=== PATIENT | female | born 2000 | race African-American/Black ===

== ENCOUNTER 2023-09-18 12:42 | Emergency (ER) | payer OTHER ==
[~2023-09-18] VITALS: Ht 170.2 cm; Wt 160.0 kg
[2023-09-18 12:46] VITALS: O2SAT 98
[2023-09-18] MEDS ORDERED: MORPHINE SULFATE 2 MG/ML CPJ (NOT FOR IM USE) IV ONE (13:00)
[2023-09-18 13:51] LABS: CLARITY URINE TURBID (CLEAR); COLOR URINE ORANGE (YELLOW); GLUCOSE URINE TRACE (NEGATIVE); KETONES URINE NEGATIVE (NEGATIVE); LEUKOCYTE ESTERASE URINE 3+ (NEGATIVE); NITRITE URINE NEGATIVE (NEGATIVE); OCCULT BLOOD URINE 1+ (NEGATIVE); PH URINE >=9.0 (4.5-8.0); PROTEIN URINE 3+ (NEGATIVE); SPECIFIC GRAVITY URINE 1.021 (1.005-1.030); UROBILINOGEN URINE 0.2 E.U./dL (0.2-1.0)
[2023-09-18 14:08] LABS: BACTERIA URINE 3+; SQUAMOUS EPITHELIAL CELL URINE RARE /lpf (RARE/1+); YEAST URINE NONE SEEN
[2023-09-18 14:09] LABS: TRIPLE PHOSPHATE CRYSTAL URINE 3+ /lpf
[2023-09-18] MEDS: SODIUM CHLORIDE 0.9% 1,000 ML IV ONE (14:57)
[2023-09-18 15:00] LABS: BASOPHILS % 0.5 % (0.0-2.0); EOSINOPHILS % 2.1 % (0.0-5.0); HEMATOCRIT. 35.9 % (36.0-48.0); HEMOGLOBIN. 11.5 g/dL (12.0-16.0); LYMPHOCYTES % 31.9 % (20.0-50.0); MEAN CORPUSCULAR HEMOGLOBIN 28.1 pg (28.0-32.0); MEAN CORPUSCULAR HGB CONC 31.9 g/dL (31.0-37.0); MEAN CORPUSCULAR VOLUME 88.1 fL (81.0-99.0); MEAN PLATELET VOLUME 8.8 fl (7.4-10.4); MONOCYTES % 4.5 % (2.0-8.0); PLATELET 329 x1000/uL (130-400); RED BLOOD CELL COUNT 4.08 mill/uL (4.2-5.4); WHITE BLOOD COUNT 6.1 x1000/uL (4.5-11.0)
[2023-09-18] MEDS: CEFTRIAXONE 1GM/50ML 50 ML IV NR (15:05)
[2023-09-18 15:17] LABS: ALANINE AMINOTRANSFERASE < 7 IU/L (10-49); ASPARTATE AMINOTRANSFERASE 11 IU/L (<34); BILIRUBIN TOTAL 0.4 mg/dL (0.1-1.0); CALCIUM 8.8 mg/dL (8.7-10.4); CARBON DIOXIDE 22 mEq/L (21-32); CHLORIDE 110 mEq/L (98-107); CREATININE 0.7 mg/dL (0.6-1.0); GLUCOSE 87 mg/dL (70-105); POTASSIUM 5.1 mEq/L (3.5-5.1); PROTEIN TOTAL 7.8 g/dL (6.0-8.3); SODIUM 137 mEq/L (136-145); UREA NITROGEN BLOOD 12 mg/dL (9-23)
[2023-09-18] MEDS: MORPHINE SULFATE 2 MG/ML CPJ (NOT FOR IM USE) IV NR (15:35)
[2023-09-18 17:11] VITALS: BP 123/72; PULSE 101; RESP 17; TEMP 98.2
== END 2023-09-18 17:37 | disposition short-term general hospital (02) ==
LOC: ER 12:42 → CANBEDREQ 16:12 → ER 17:37
DX: N39.0 Urinary tract infection, site not specified (principal)
CPT/HCPCS: 80053; 81003; 83690; 85025; 87086; 87186; 87077; 36415; 93005; 96365; 96375; 99285; J0696; J2270; J7030; Z7610 ×3; C1893

== ENCOUNTER 2023-10-26 11:04 | Emergency (ER) | payer OTHER ==
[~2023-10-26] VITALS: Ht 170.2 cm; Wt 145.0 kg
[2023-10-26 11:07] VITALS: O2SAT 99
[2023-10-26 12:18] LABS: BASOPHILS % 0.9 % (0.0-2.0); HEMATOCRIT. 33.8 % (36.0-48.0); LYMPHOCYTES % 28.8 % (20.0-50.0); MEAN CORPUSCULAR HEMOGLOBIN 27.4 pg (28.0-32.0); MEAN CORPUSCULAR HGB CONC 32.5 g/dL (31.0-37.0); MEAN CORPUSCULAR VOLUME 84.4 fL (81.0-99.0); MEAN PLATELET VOLUME 8.8 fl (7.4-10.4); MONOCYTES % 3.6 % (2.0-8.0); NEUTROPHILS % 64.7 % (40.0-76.0); PLATELET 286 x1000/uL (130-400); RED CELL DISTRIBUTION WIDTH 14.9 % (11.6-14.6); WHITE BLOOD COUNT 5.9 x1000/uL (4.5-11.0)
[2023-10-26 12:37] LABS: ALANINE AMINOTRANSFERASE < 7 IU/L (10-49); ALBUMIN 3.9 g/dL (3.2-4.8); ASPARTATE AMINOTRANSFERASE 10 IU/L (<34); BILIRUBIN TOTAL 0.2 mg/dL (0.1-1.0); CALCIUM 8.5 mg/dL (8.7-10.4); CARBON DIOXIDE 25 mEq/L (21-32); CHLORIDE 109 mEq/L (98-107); CREATININE 0.8 mg/dL (0.6-1.0); GLUCOSE 104 mg/dL (70-105); POTASSIUM 4.2 mEq/L (3.5-5.1); PROTEIN TOTAL 7.5 g/dL (6.0-8.3); SODIUM 137 mEq/L (136-145); UREA NITROGEN BLOOD 14 mg/dL (9-23)
[2023-10-26 12:40] LABS: TROPONIN I HIGH SENSITIVITY < 4 ng/L (3.0-34)
[2023-10-26 12:57] LABS: PROTHROMBIN TIME 10.7 sec (9.6-11.0)
[2023-10-26] MEDS: CEFTRIAXONE 1GM/50ML 50 ML IV ONE (14:09)
[2023-10-26] MEDS ORDERED: DOCUSATE SODIUM 100MG CAPSULE PO PRN (15:00)
[2023-10-26] MEDS ORDERED: GUAIFENESIN 200MG/10ML SUGAR FREE UDC PO PRN (15:00)
[2023-10-26] MEDS ORDERED: CLONIDINE 0.1MG TABLET PO PRN (15:00)
[2023-10-26] MEDS ORDERED: ONDANSETRON HCL 4MG/2ML INJ IV PRN (15:00)
[2023-10-26] MEDS ORDERED: IPRATROPIUM/ALBUTEROL 0.5-3(2.5)MG/3ML NEB NEB PRN (15:00)
[2023-10-26] MEDS ORDERED: NITROGLYCERIN 0.4MG TABLET SL SL PRN (15:00)
[2023-10-26] MEDS ORDERED: ACETAMINOPHEN 325MG TABLET PO PRN ×2 (15:00)
[2023-10-26] MEDS ORDERED: MAGNESIUM/ALUMINUM HYDROXIDE/SIMETHICONE 30ML UDC PO PRN (15:00)
[2023-10-26] MEDS ORDERED: KETOROLAC 15MG/ML VIAL IV PRN (15:00)
[2023-10-26 15:41] LABS: FOLIC ACID (FOLATE) SERUM 6.42 ng/mL (>5.38); IRON 17 ug/dL (50-170); T4 FREE 1.08 ng/dL (0.89-1.76); THYROID STIMULATING HORMONE 0.86 uIU/mL (0.55-4.78); TOTAL IRON BINDING CAPACITY 630 ug/dl (250-425); VITAMIN B12 SERUM 289 pg/mL (211-911)
[2023-10-26 16:30] VITALS: BP 159/89; PULSE 89; RESP 18; TEMP 97.9
[2023-10-26] MEDS ORDERED: ENOXAPARIN 40MG/0.4ML SYR SUBCUT SCH (18:00)
[2023-10-26] MEDS ORDERED: FAMOTIDINE 20MG TABLET PO SCH (21:00)
[2023-10-26] MEDS ORDERED: ZOLPIDEM TARTRATE 5MG TABLET PO PRN (21:00)
== END 2023-10-26 16:30 | disposition left against medical advice (07) ==
LOC: ER 11:04 → CANBEDREQ 16:58
DX: N39.0 Urinary tract infection, site not specified (principal)
CPT/HCPCS: 80053; 82607; 82746; 83036; 84439; 83540; 83550; 83605; 84443; 85025; 85610; 87040; 87086; 87186; 84484; 87077; 36415; 84145; 71045; 93005; 96365; 99285; J0696; Z7610 ×2

== ENCOUNTER 2023-11-28 06:49 | Emergency (ER) | payer MEDICARE, MEDICAID ==
[~2023-11-28] VITALS: Ht 165.1 cm; Wt 135.0 kg
[2023-11-28 06:51] VITALS: TEMP 98.1; O2SAT 98
[2023-11-28 08:19] LABS: BASOPHILS % 0.6 % (0.0-2.0); EOSINOPHILS % 4.5 % (0.0-5.0); HEMATOCRIT. 35.3 % (36.0-48.0); HEMOGLOBIN. 11.7 g/dL (12.0-16.0); LYMPHOCYTES % 22.2 % (20.0-50.0); MEAN CORPUSCULAR HEMOGLOBIN 28.6 pg (28.0-32.0); MEAN CORPUSCULAR HGB CONC 33.3 g/dL (31.0-37.0); MEAN CORPUSCULAR VOLUME 85.9 fL (81.0-99.0); MONOCYTES % 5.3 % (2.0-8.0); NEUTROPHILS % 67.4 % (40.0-76.0); PLATELET 272 x1000/uL (130-400); RED CELL DISTRIBUTION WIDTH 15.4 % (11.6-14.6); WHITE BLOOD COUNT 7.9 x1000/uL (4.5-11.0)
[2023-11-28 08:25] LABS: CHLORIDE 110 mEq/L (98-107); POTASSIUM 4.3 mEq/L (3.5-5.1); SODIUM 136 mEq/L (136-145)
[2023-11-28 08:26] LABS: CARBON DIOXIDE 23 mEq/L (21-32)
[2023-11-28 08:27] LABS: CALCIUM 9.3 mg/dL (8.7-10.4)
[2023-11-28 08:31] LABS: CREATININE 0.8 mg/dL (0.6-1.0); GLUCOSE 100 mg/dL (70-105)
[2023-11-28 08:32] LABS: UREA NITROGEN BLOOD 12 mg/dL (9-23)
[2023-11-28 08:33] LABS: ALANINE AMINOTRANSFERASE < 7 IU/L (10-49); ALBUMIN 3.9 g/dL (3.2-4.8); ASPARTATE AMINOTRANSFERASE 10 IU/L (<34)
[2023-11-28 08:34] LABS: BILIRUBIN TOTAL 0.5 mg/dL (0.1-1.0); PROTEIN TOTAL 7.3 g/dL (6.0-8.3)
[2023-11-28 08:42] LABS: CLARITY URINE TURBID (CLEAR); COLOR URINE YELLOW (YELLOW); GLUCOSE URINE NEGATIVE (NEGATIVE); KETONES URINE NEGATIVE (NEGATIVE); LEUKOCYTE ESTERASE URINE 3+ (NEGATIVE); NITRITE URINE NEGATIVE (NEGATIVE); OCCULT BLOOD URINE 3+ (NEGATIVE); PH URINE 5.5 (4.5-8.0); PROTEIN URINE 2+ (NEGATIVE); SPECIFIC GRAVITY URINE 1.016 (1.005-1.030); UROBILINOGEN URINE 0.2 E.U./dL (0.2-1.0)
[2023-11-28 08:56] LABS: BACTERIA URINE 4+; SQUAMOUS EPITHELIAL CELL URINE 1+ /lpf (RARE/1+); WBC URINE TNTC /hpf (0-2); YEAST URINE NONE SEEN
[2023-11-28 08:58] LABS: RBC URINE 50-100 /hpf (0-2)
[2023-11-28] MEDS: AMOXICILLIN/POTASSIUM CLAVULANATE 875/125MG TAB PO ONE (09:10)
[2023-11-28] MEDS: MORPHINE SULFATE 4 MG/ML INJ (FOR IV/IM USE) IV ONE ×2 (11:28→15:42)
[2023-11-28] MEDS: AMOXICILLIN/CLAVULANATE 80MG/ML ORAL SYR PO ONE (11:52)
[2023-11-28] MEDS ORDERED: AMOX200S10 MT (15:24)
[2023-11-28] MEDS: ONDANSETRON HCL 4MG/2ML INJ IV ONE (17:15)
[2023-11-28] MEDS: HYDROMORPHONE HCL/PF 2MG/ML CPJ IV ONE (18:20)
[2023-11-28 19:34] VITALS: BP 113/57; PULSE 78; RESP 16
== END 2023-11-28 20:19 | disposition short-term general hospital (02) ==
LOC: ER 07:15
DX: N39.0 Urinary tract infection, site not specified (principal)
CPT/HCPCS: 99285; 96374; 96375; 80053; 81003; 81025; 83605; 85025; 87086; 87186; 36415; 96376; J2405; J1170; J2270

== ENCOUNTER 2023-12-22 21:58 | Emergency (ER) | payer MEDICARE, MEDICAID ==
[~2023-12-22] VITALS: Ht 175.3 cm; Wt 114.0 kg
[~2023-12-22 21:58] MED LIST: AMOX200S10 MT
[2023-12-22 22:01] VITALS: TEMP 98.6; O2SAT 100
[2023-12-22] MEDS: MAGNESIUM/ALUMINUM HYDROXIDE/SIMETHICONE 30ML UDC PO ONE (22:30)
[2023-12-23] MEDS ORDERED: MAG355OR21 MT (00:07)
[2023-12-23 01:34] VITALS: BP 135/63; PULSE 68; RESP 18
== END 2023-12-23 01:36 | disposition home or self-care (01) ==
LOC: ER 21:58
DX: T18.108A Unspecified foreign body in esophagus causing other injury, initial encounter (principal); X58.XXXA Exposure to other specified factors, initial encounter; Y93.89 Activity, other specified; Y92.89 Other specified places as the place of occurrence of the external cause; Y99.8 Other external cause status
CPT/HCPCS: 71045; 99283